=== PATIENT | male | born 1975 | race Caucasian/White ===

== ENCOUNTER 2017-03-14 10:53 | Inpatient (IN) | payer OTHER ==
[2017-03-14] VITALS (22 sets, daily range): BP systolic 113–170; BP diastolic 59–103; PULSE 68–102; RESP 10–31; Ht 175.3 cm; Wt 97.0 kg
[~2017-03-14] VITALS: Ht 175.3 cm; Wt 97.0 kg
[2017-03-14] MEDS ORDERED: BUPIVACAINE 0.25% (MPF) 30 ML INJ ONE (11:56)
[2017-03-14] MEDS ORDERED: SURGIFOAM POWDER 1 GM KIT ONE (11:56)
[2017-03-14] MEDS ORDERED: GELATIN SIZE 100 SPONGE ONE (11:56)
[2017-03-14] MEDS ORDERED: THROMBIN 5000 UNIT VIAL ONE (11:57)
[2017-03-14] MEDS ORDERED: BUPIVACAINE 0.25%/EPI (SDV) 30 ML INJ ONE (11:57)
[2017-03-14] MEDS ORDERED: METF850T PO (12:03)
[2017-03-14] MEDS ORDERED: LISI10TA2 PO (12:04)
[2017-03-14] MEDS ORDERED: GLYB5TAB3 PO (12:04)
[2017-03-14] MEDS ORDERED: SIMV20TA PO (12:04)
[2017-03-14] MEDS ORDERED: NPH,100V SQ (12:05)
[2017-03-14] MEDS ORDERED: HYD25 PO (12:06)
[2017-03-14] MEDS ORDERED: POLYMYXIN/BACITRACIN 1L IRRIG ONE (12:08)
[2017-03-14] MEDS: 1/2 NS + KCL 20 MEQ 1,000 ML IV SCH ×2 (12:21→22:21)
--- NOTE | 2017-03-14 12:21 | HPN ---
Date/Time of Note Date/Time of Note DATE: 03/14/17 TIME: 12:20 Interval H&P Admission Note Pt. seen H&P reviewed: No system changes WHITLEY MANRIQUE PA-C Mar 14, 2017 12:20
[2017-03-14] MEDS ORDERED: FENTAnyl 50 MCG/ML VIAL ONE ×2 (12:22→13:18)
[2017-03-14] MEDS ORDERED: ROCURONIUM 50 MG INJ ONE (12:22)
[2017-03-14] MEDS ORDERED: SUCCINYLCHOLINE CHLORIDE 100 MG/5 ML SYG IV ONE (12:22)
[2017-03-14] MEDS ORDERED: PROPOFOL 20 ML ONE (12:22)
[2017-03-14] MEDS ORDERED: MIDAZOLAM 1 MG/ML 2 ML INJ ONE (12:22)
[2017-03-14] MEDS ORDERED: METOCLOPRAMIDE 10 MG INJ ONE (12:23)
[2017-03-14] MEDS ORDERED: CEPASTAT LOZENGE MT PRN (12:30)
[2017-03-14] MEDS ORDERED: AL HYDROX/MG HYDROX/SIMETH 30 ML CUP PO PRN (12:30)
[2017-03-14] MEDS ORDERED: NALOXONE (0.4 MG/ML) INJ IV PRN (12:30)
[2017-03-14] MEDS ORDERED: LACTATED RINGER'S 1L BAG IV* SCH (12:30)
[2017-03-14] MEDS ORDERED: BISACODYL 10 MG SUPP PR PRN (12:30)
[2017-03-14] MEDS ORDERED: HYDROmorphONE 1 MG/ML SYG IV PRN (12:30)
[2017-03-14] MEDS ORDERED: DIPHENHYDRAMINE 50 MG INJ IV PRN ×2 (12:30→13:30)
[2017-03-14] MEDS ORDERED: ACETAMINOPHEN 325 MG TAB PO PRN (12:30)
[2017-03-14] MEDS ORDERED: CEFAZOLIN 2 GM/50 ML (PMX) 50 ML IVPB SCH (12:30)
[2017-03-14] MEDS: CEFAZOLIN 1 GM/50 ML (PMX) 50 ML IVPB SCH ×2 (12:30→20:20)
[2017-03-14] MEDS ORDERED: ACETAMINOPHEN/CODEINE #3 TAB PO PRN (12:30)
[2017-03-14] MEDS ORDERED: ONDANSETRON 4 MG INJ IV PRN ×2 (12:30→13:30)
[2017-03-14] MEDS ORDERED: HYDROmorphONE 0.2 MG/ML PCA IV SCH (12:30)
[2017-03-14] MEDS ORDERED: ZOLPIDEM 5 MG TAB PO PRN (12:30)
[2017-03-14] MEDS ORDERED: HYDROmorphONE 2 MG/ML SYG ONE (12:35)
[2017-03-14] MEDS ORDERED: CA CHLORIDE 10% 10 ML SYRINGE ONE (13:03)
[2017-03-14] MEDS ORDERED: HYDROmorphONE (0.2 MG/ML) 10ML SYG IV PRN ×3 (13:30)
[2017-03-14] MEDS ORDERED: LABETALOL HCL 20MG INJ IV PRN (13:30)
[2017-03-14] MEDS ORDERED: hydrALAzine 20 MG INJ IV PRN (13:30)
[2017-03-14] MEDS ORDERED: METOCLOPRAMIDE 10 MG INJ IV PRN (13:30)
[2017-03-14] MEDS ORDERED: MEPERIDINE 25 MG INJ IV PRN (13:30)
[2017-03-14] MEDS ORDERED: FENTANYL 100MCG INJ IV ONE (13:33)
--- NOTE | 2017-03-14 13:35 | RADRPT ---
PROCEDURE: A lateral view of the lumbar spine. CLINICAL INDICATION: Surgical finding for lumbar microdiskectomy. TECHNIQUE: A single cross-table lateral view of the lumbar spine was performed. COMPARISON: No. FINDINGS: There is a metal marker dorsal to the L4-5 interspinous space. Another marker is identified in the soft tissues dorsal to the S2. There is mild disk space narrowing at L5-S1. There is a small ventra l osteophyte off of L4. IMPRESSION: 1. 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 2. Mild disk space narrowing at L5-S1 with a metal needle marking the soft tissues dorsal to the L4 -5 interspinous space. RPTAT:AAJJ Physician Marlon Date Time Electronically viewed and signed by Horacio Siddiqi Physician on 03/14/2017 13:35 ANN/
[2017-03-14] MEDS ORDERED: NEOSTIGMINE 3 MG/3 ML SYRINGE ONE (14:21)
[2017-03-14] MEDS ORDERED: GLYCOPYRROLATE 1 MG INJ ONE (14:21)
[2017-03-14] MEDS ORDERED: CEFAZOLIN 1 GM INJ ONE (14:21)
[2017-03-14] MEDS ORDERED: LIDOCAINE 2% (SDV) 5 ML INJ ONE (14:23)
--- NOTE | 2017-03-14 15:14 | OPR ---
DATE OF OPERATION: 03/14/2017 PREOPERATIVE DIAGNOSIS: 1. Right L5-S1 disk herniation. 2. Right lumbosacral radiculopathy. POSTOPERATIVE DIAGNOSIS: 1. Right L5-S1 disk herniation. 2. Right lumbosacral radiculopathy. OPERATION PERFORMED: 1. Right L5-S1 hemilaminotomy, partial medial facetectomy and foraminotomy. 2. Right L5-S1 lumbar microdiskectomy. 3. Use of intraoperative neuromonitoring (2 hours). 5. Lateral localizing film x2. 6. Use of operative microscope. 7. Epidural injection via catheter. PRIMARY SURGEON: Dwight Suero MD ENVIRONMENTAL TEST TECHNICIAN: HUNTER Boss. NEED FOR INGREDIENT SCALER HELPER: During this spinal surgical procedure, my anesthesiologists' assistant was used to retrac t and protect the spinal nerves and dural sac. My anesthesiologists' assistant also employed the suction catheters to evacuate blood from the surgical field to improve visualization of the neural structures. The radha tant was medically necessary to facilitate the completion of the surgery in a safe and expeditious m roberta. State of [place] regulations, as well as hospital bylaws, preclude the use of non-license d health care personnel, such as operating room technicians, to perform these functions. FINDINGS: At the start of the case, the left L5 amplitude down 10%, right L5 amplitude down 20%, le ft S1 down 30%, right S1 amplitude down 70%. At the end of the case, nerve signals returned to norm al. The patient had epidural lipomatosis at L5-S1 with right-sided disk herniation causing nerve ro ot impingement. ESTIMATED BLOOD LOSS: 30 mL. DRAINS: None. SPECIMENS: Disk. COMPLICATIONS OF PROCEDURES: None. ANESTHESIOLOGIST: HUNTER PHILLIPS MD. TYPE OF ANESTHESIA: General. INDICATIONS FOR PROCEDURE: This is a 41-year-old gentleman with right lumbosacral radiculopathy in the setting of disk herniation at L5-S1. He had failed nonoperative measures, therefore, I recommen ded proceeding with the above-mentioned surgery. Preoperatively, risks, benefits and alternatives w ere discussed. He wished to proceed with the surgery. Although the patient had an elevated hemoglo bin A1c, his recent blood sugar levels were below 200 and therefore it was felt safe to proceed with the surgery. DESCRIPTION OF PROCEDURE IN DETAIL: The patient was identified in the preoperative holding area, gi quintin Ancef antibiotic, taken to the operating room, where he was successfully placed under general an esthesia. Neuromonitoring leads were placed, sequential compressive devices were applied. Neuromon itoring was utilized during the procedure for 2 hours to include SSEP, MEP, and EMG. This was perfo rmed by [employer]. Start time was 12:30 p.m., closure time was 2:30 p.m. The patient was pl aced downward and turned in prone position over Elia frame. All bony prominences were well padded . The back was then prepped and draped in usual sterile fashion. Spinal needles were placed and la teral localizing films obtained to confirm the correct levels. Once this was confirmed, I injected the paraspinal musculature with 0.25% Marcaine and epinephrine. Incision was then made over the L5- S1 level. Incision was taken down to dorsal fascia, which was incised with Bovie cautery. I then s ubperiosteally dissected the L5 lamina. Jennifer retractor was placed. Kerrison was placed under wha t was felt to be the L5 lamina and repeat lateral films obtained to confirm the correct levels. Onc e this was confirmed, microscope was brought in and a right-sided hemilaminotomy, partial medial fac etectomy and foraminotomy were performed. Ligamentum flavum was sharply dissected. Epidural lipoma tosis was identified and taking care to remove this to clearly identify the nerve root. I then retr acted neural elements medially. Annulotomy was made followed by diskectomy. Once this was done, al l nerve signals returned to normal. A Valsalva maneuver was performed and there was no leak of CSF. The wound was then copiously irrigated. The wound was dry and therefore did not to place a drain. I passed an epidural catheter through which I injected 100 mcg of fentanyl. Catheter was pulled. I removed the retractor and then closed the deep fascia with #1 Vicryl stitch. I then closed subc utaneous tissue with 2-0 Vicryl stitch. A 4-0 Monocryl closure was then performed. Dermabond was t hen applied. The patient was then awakened from anesthesia and taken to recovery in stable conditio n. Lap, sponge, and instrument counts were correct x2. There were no apparent complications during the procedure. The patient will be admitted to orthopedic abbasi to include pain control, neurovascular checks, antib iotics, and physical therapy as well as diabetes control. Dictated By: DWIGHT PEREZ/FOUZIA Conf#: [id number] DID#: [id number]
--- NOTE | 2017-03-14 16:21 | RADRPT ---
PROCEDURE: XR Lumbar Spine. CLINICAL INDICATION: LUMBAR MICRODISCECTOMY TECHNIQUE: A single lateral view of the lumbar spine was obtained. COMPARISON: No prior studies are available for comparison. FINDINGS: There is normal osseous mineralization. There is normal alignment. A posterior localizing pain is noted at the L5-S1 level. IMPRESSION: Posterior localizing pin at L5-S1. RPTAT: EE Physician Willow Date Time Electronically viewed and signed by Andrea Holland Physician on 03/14/2017 16:21 /
[2017-03-14 17:05] LABS: ADD SCAN DIFF NO
[2017-03-14 17:07] LABS: BASOPHIL # 0.1 10^3/ul (0.0-0.1); BASOPHILS % 0.4 % (0.0-2.0); EOSINOPHILS % 0.1 % (0.0-7.0); HEMATOCRIT 43.8 % (42.0-52.0); HEMOGLOBIN 15.2 g/dl (14.0-18.0); LYMPHOCYTES # 1.5 10^3/ul (0.8-2.9); LYMPHOCYTES % 9.9 % (15.0-51.0); MEAN CORPUSCULAR HEMOGLOBIN 30.3 pg (29.0-33.0); MEAN CORPUSCULAR HGB CONC 34.7 g/dl (32.0-37.0); MEAN CORPUSCULAR VOLUME 87.4 fl (82.0-101.0); MONOCYTE # 1.2 10^3/ul (0.3-0.9); MONOCYTES % 7.4 % (0.0-11.0); NEUTROPHIL # 12.7 10^3/ul (1.6-7.5); NEUTROPHILS % 81.7 % (39.0-77.0); PLATELET COUNT 243 10^3/UL (140-415); RED BLOOD COUNT 5.01 10^6/ul (4.70-6.10); RED CELL DISTRIBUTION WIDTH 12.5 % (11.5-14.5); WHITE BLOOD COUNT 15.6 10^3/ul (4.8-10.8)
[2017-03-14 17:24] LABS: ALBUMIN 4.3 g/dl (3.3-4.9); ALBUMIN/GLOBULIN RATIO 1.79; BILIRUBIN,INDIRECT 0.7 mg/dl (0-1.1); BILIRUBIN,TOTAL 0.7 mg/dl (0.2-1.3); CALCIUM 8.7 mg/dl (8.4-10.2); CREATININE 0.76 mg/dl (0.61-1.24); POTASSIUM 4.8 mmol/L (3.5-5.1); TOTAL PROTEIN 6.7 g/dl (6.1-8.1)
[2017-03-14] MEDS ORDERED: GLUCOSE GEL 15 GRAM TUBE BUCCAL PRN (17:30)
[2017-03-14] MEDS ORDERED: GLUCAGON 1 MG INJ IM PRN (17:30)
[2017-03-14] MEDS ORDERED: GLUCOSE GEL 15 GRAM TUBE PO PRN ×2 (17:30)
[2017-03-14] MEDS ORDERED: DEXTROSE 50% 50 ML SYRINGE IV PRN ×2 (17:30)
--- NOTE | 2017-03-14 18:05 | CONS ---
DATE OF ADMISSION: 03/14/2017 DATE OF CONSULTATION: 03/14/2017 MEDICAL CONSULTATION Thank you, Dr. Suero for asking me to participate in the medical management of this patient. REASON FOR CONSULTATION: Patient has hypertension, diabetes mellitus and hyperlipidemia. HISTORY OF PRESENT ILLNESS: This 41-year-old man says that he was in his usual state of health untlibby travis 07/15/2015 when at work he was lifting some plywood and felt a sudden twinge in his back with estela re pain. The patient has been having treatment through his workman's compensation. He has had epid ural injections which have failed and has had medical management which has also failed. The patient was cleared to have lumbar spine surgery and underwent surgery today by Dr. Suero. The patien t underwent a lumbar spine surgery for a right L5-S1 disk herniation and radiculopathy. The surgery was a right L5-S1 hemilaminectomy, partial medial facetectomy and foraminotomy with a right L5-S1 lumbar microdiscectomy. The patient tolerated the procedure well. He is now in the recovery room a wake and alert. He is answering questions about his history. The patient denies any chest pain or s hortness of breath. The patient has the following past medical history of diabetes mellitus, hypert ension, hyperlipidemia. CURRENT MEDICATIONS: Include the followin. Lisinopril 10 mg daily. 2. Simvastatin 20 mg a day. 3. Hydrochlorothiazide 25 mg a day. 4. Glyburide 10 mg twice a day. 5. NPH insulin 15 units twice a day. 6. Metformin 850 mg twice a day with breakfast and dinner. MEDICATIONS: He did not take any of his medications today. PAST SURGICAL HISTORY: He has not had surgery previously. He does not take any herbal supplements. ALLERGIES: DENIES ANY DRUG ALLERGIES. SOCIAL HISTORY: The patient has never smoked and is a nondrinker. PHYSICAL EXAMINATION: GENERAL: At this time reveals a well-developed man in no apparent distress. VITAL SIGNS: Pulse is 97, blood pressure 150/88, O2 saturation 99% on 2 liter nasal cannula. HEENT: Head normocephalic. Eyes: Extraocular muscles intact. NOSE AND MOUTH: Normal. NECK: Supple. No neck vein distention. LUNGS: Clear to auscultation. HEART: Regular rhythm. No murmurs, gallops or rubs. ABDOMEN: Soft, nontender. EXTREMITIES: No peripheral edema. IMPRESSION: This patient is stable after surgery today. His blood pressure is elevated, but accept able. He is asymptomatic with this. I will manage the patient's hypertension, diabetes mellitus, a nd hyperlipidemia. PLAN: 1. Resume routine medications. 2. Check labs in the morning. 3. Postop lumbar spine surgery protocol. 4. I will follow the patient along with you. Dictated By: TIO GARIBAY MD, ND/FOUZIA Conf#: [id number] DID#: [id number]
[2017-03-14] MEDS: INSULIN ASPART [NOVOLOG] 3 ML PEN SC SCH ×2 (18:46→20:25)
[2017-03-14] MEDS: CYCLOBENZAPRINE 10 MG TAB PO PRN (20:20)
[2017-03-14] MEDS: DOCUSATE SODIUM 100 MG CAP PO SCH (20:20)
[2017-03-14] MEDS ORDERED: ATORVASTATIN 10 MG TAB PO SCH (21:00)
[2017-03-15] MEDS ORDERED: ACCU-CHEK XX SCH (02:00)
[2017-03-15] MEDS: CYCLOBENZAPRINE 10 MG TAB PO PRN (03:46)
[2017-03-15] MEDS: CEFAZOLIN 1 GM/50 ML (PMX) 50 ML IVPB SCH (03:46)
[2017-03-15 05:35] LABS: ADD SCAN DIFF NO
[2017-03-15 05:46] LABS: ABNORMAL IP MESSAGE 1; BASOPHILS % 0.3 % (0.0-2.0); EOSINOPHILS % 0.2 % (0.0-7.0); HEMATOCRIT 42.6 % (42.0-52.0); HEMOGLOBIN 14.4 g/dl (14.0-18.0); LYMPHOCYTES # 1.8 10^3/ul (0.8-2.9); LYMPHOCYTES % 14.2 % (15.0-51.0); MEAN CORPUSCULAR HEMOGLOBIN 29.9 pg (29.0-33.0); MEAN CORPUSCULAR HGB CONC 33.8 g/dl (32.0-37.0); MEAN CORPUSCULAR VOLUME 88.4 fl (82.0-101.0); MEAN PLATELET VOLUME 10.8 fl (7.4-10.4); MONOCYTE # 1.5 10^3/ul (0.3-0.9); MONOCYTES % 11.9 % (0.0-11.0); NEUTROPHIL # 9.5 10^3/ul (1.6-7.5); NEUTROPHILS % 72.9 % (39.0-77.0); PLATELET COUNT 232 10^3/UL (140-415); RED BLOOD COUNT 4.82 10^6/ul (4.70-6.10); RED CELL DISTRIBUTION WIDTH 12.7 % (11.5-14.5)
[2017-03-15 06:09] LABS: ALBUMIN/GLOBULIN RATIO 1.6; BILIRUBIN,INDIRECT 0.9 mg/dl (0-1.1); BILIRUBIN,TOTAL 0.9 mg/dl (0.2-1.3); CALCIUM 8.6 mg/dl (8.4-10.2); CREATININE 0.77 mg/dl (0.61-1.24); MAGNESIUM 1.5 mg/dl (1.7-2.5); POTASSIUM 4.1 mmol/L (3.5-5.1); TOTAL PROTEIN 6.5 g/dl (6.1-8.1)
[2017-03-15] MEDS ORDERED: metFORMIN 850 MG TAB PO SCH (08:30)
--- NOTE | 2017-03-15 08:33 | CONS ---
Date/Time of Note Date/Time of Note DATE: 03/15/17 TIME: 08:30 Assessment/Plan Assessment/Plan Chief Complaint/Hosp Course 1. He is 1 day postop a lumbar spine surgery. He is having some incisional site pain. He does not have any right leg pain. He has been up walking some. 2. Low magnesium. Will order magnesium supplement. 3. Will DC IV fluid after magnesium is given. 4. Diabetes mellitus. I will restart metformin twice a day. Problems: Consultation Date/Type/Reason Admit Date/Time Mar 14, 2017 at 10:53 Initial Consult Date 24 HR Interval Summary Free Text/Dictation He is having some low back pain at the incision site. He says that he has been up to the bathroom. Exam/Review of Systems Vital Signs Vitals Vital Signs Date Time Temp Pulse Resp B/P Pulse Ox O2 Delivery O2 Flow Rate FiO2 03/15/17 06:49 17 03/14/17 23:51 99.3 98 122/71 98 03/14/17 18:55 Room Air 03/14/17 16:29 2.0 Intake and Output 03/14/17 03/14/17 03/15/17 15:00 23:00 07:00 Intake Total 1700 ml 550 ml 1650 ml Output Total 30 ml Balance 1670 ml 550 ml 1650 ml Exam Constitutional: alert, oriented, well developed Respiratory: clear to auscultation, normal air movement Cardiovascular: regular rate and rhythm Gastrointestinal: soft Musculoskeletal: nl extremities to inspection Results Result Diagram: 03/15/17 0427 03/15/17 0427 Results 24 hrs Laboratory Tests Test 03/14/17 11:48 03/14/17 16:33 03/14/17 17:00 03/14/17 18:35 Bedside Glucose 119 134 144 White Blood Count 15.6 H Red Blood Count 5.01 Hemoglobin 15.2 Hematocrit 43.8 Mean Corpuscular Volume 87.4 Mean Corpuscular Hemoglobin 30.3 Mean Corpuscular Hemoglobin Concent 34.7 Red Cell Distribution Width 12.5 Platelet Count 243 Mean Platelet Volume 10.0 Neutrophils % 81.7 H Lymphocytes % 9.9 L Monocytes % 7.4 Eosinophils % 0.1 Basophils % 0.4 Nucleated Red Blood Cells % 0.0 Neutrophils # 12.7 H Lymphocytes # 1.5 Monocytes # 1.2 H Eosinophils # 0.0 Basophils # 0.1 Nucleated Red Blood Cells # 0.0 Sodium Level 140 Potassium Level 4.8 Chloride Level 103 Carbon Dioxide Level 30 Anion Gap 12 Blood Urea Nitrogen 13 Creatinine 0.76 Glucose Level 155 Calcium Level 8.7 Total Bilirubin 0.7 Direct Bilirubin 0.00 Indirect Bilirubin 0.7 Aspartate Amino Transf (AST/SGOT) 32 Alanine Aminotransferase (ALT/SGPT) 50 Alkaline Phosphatase 70 Total Protein 6.7 Albumin 4.3 Globulin 2.40 Albumin/Globulin Ratio 1.79 Test 03/14/17 20:21 03/15/17 01:41 03/15/17 04:27 03/15/17 08:15 Bedside Glucose 225 H 140 183 White Blood Count 13.0 H Red Blood Count 4.82 Hemoglobin 14.4 Hematocrit 42.6 Mean Corpuscular Volume 88.4 Mean Corpuscular Hemoglobin 29.9 Mean Corpuscular Hemoglobin Concent 33.8 Red Cell Distribution Width 12.7 Platelet Count 232 Mean Platelet Volume 10.8 H Neutrophils % 72.9 Lymphocytes % 14.2 L Monocytes % 11.9 H Eosinophils % 0.2 Basophils % 0.3 Nucleated Red Blood Cells % 0.0 Neutrophils # 9.5 H Lymphocytes # 1.8 Monocytes # 1.5 H Eosinophils # 0.0 Basophils # 0.0 Nucleated Red Blood Cells # 0.0 Sodium Level 137 Potassium Level 4.1 Chloride Level 102 Carbon Dioxide Level 26 Anion Gap 13 Blood Urea Nitrogen 14 Creatinine 0.77 Glucose Level 165 Calcium Level 8.6 Magnesium Level 1.5 L Total Bilirubin 0.9 Direct Bilirubin 0.00 Indirect Bilirubin 0.9 Aspartate Amino Transf (AST/SGOT) 31 Alanine Aminotransferase (ALT/SGPT) 46 Alkaline Phosphatase 62 Total Protein 6.5 Albumin 4.0 Globulin 2.50 Albumin/Globulin Ratio 1.60 Medications Medications Current Medications Potassium Chloride/Sodium Chloride (1/2 NS + KCl 20 Meq) 1,000 ml @ 100 mls/hr Q10H IV Last administered on 03/14/17t 12:21; Admin Dose 100 MLS/HR; Start at 12:21 Acetaminophen/ Codeine Phosphate (Tylenol No.3) 1 tab Q4H PRN PO PAIN LEVEL 1-5 ; Start 03/14/17 at 12:30 Acetaminophen/ Codeine Phosphate (Tylenol No.3) 2 tab Q4H PRN PO PAIN LEVEL 6- 10; Start 03/14/17 at 12:30 Hydromorphone HCl (Dilaudid) 0.2 mg Q1H PRN IV BREAKTHROUGH PAIN; Start at 12:30 Ondansetron HCl (Zofran Inj) 4 mg Q6H PRN IV NAUSEA AND/OR VOMITING; Start 03/14 at 12:30 Bisacodyl (Dulcolax Supp) 10 mg DAILY PRN [place] CONSTIPATION; Start 03/14/17 at 12: 30 Docusate Sodium (Colace) 100 mg BID PO Last administered on 03/14/17 20:20; Admin Dose 100 MG; Start 03/14/17 at 21:00 Al Hydrox/Mg Hydrox/Simethicone (Mag-Al Plus) 15 ml Q6H PRN PO CONSTIPATION/ DYSPEPSIA; Start 03/14/17 at 12:30 Acetaminophen (Tylenol Tab) 650 mg Q4H PRN PO CAREY OR TEMP GREATER THAN 101.3F; Start 03/14/17 at 12:30 Cyclobenzaprine HCl (Flexeril) 10 mg TID PRN PO MUSCLE SPASMS Last administered on 03/15/17 03:46; Admin Dose 10 MG; Start 03/14/17 at 12:30 Phenol (Cepastat Lozenge) 1 lozenge PRN PRN MT SORE THROAT; Start 03/14/17 at 12 :30 Diphenhydramine HCl (Benadryl) 25 mg Q6H PRN IV ITCHING; Start 03/14/17 at 12:30 Naloxone HCl (Narcan) 0.2 mg Q2M PRN IV RR 8 BREATHS/MIN OR LESS; Start at 12:30 Hydromorphone HCl (Dilaudid FIELD ADJUSTER) FIELD ADJUSTER to be started in PACU Q4PCA IV Last administered on 03/14/17 14:54; Admin Dose 6 MG; Start 03/14/17 at 12:30; Stop at 10:00 Miscellaneous Information 1. Hold FIELD ADJUSTER at 1,000... FIELD ADJUSTER IV ; Start 03/14/17 at 12: 30; Stop 03/15/17 at 10:00 Lisinopril (Zestril) 10 mg DAILY PO ; Start 03/15/17 at 09:00 Atorvastatin Calcium (Lipitor) 10 mg DAILY@21 PO Last administered on 03/14/17 20:20; Admin Dose 10 MG; Start 03/14/17 at 21:00 Clonidine (Catapres) 0.1 mg Q6H PRN PO ELEVATED BLOOD PRESSURE; Start 03/14/17 at 17:00 Diagnostic Test (Pha) (Accu-Chek) 1 ea 02 XX Last administered on 03/15/17 02: 29; Admin Dose 1 EA; Start 03/15/17 at 02:00 Miscellaneous Information 1 ea NOTE XX ; Start 03/14/17 at 17:30 Glucose (Glutose) 15 gm Q15M PRN PO DECREASED GLUCOSE; Start 03/14/17 at 17:30 Glucose (Glutose) 22.5 gm Q15M PRN PO DECREASED GLUCOSE; Start 03/14/17 at 17:30 Dextrose (D50w Syringe) 25 ml Q15M PRN IV DECREASED GLUCOSE; Start 03/14/17 at 17:30 Dextrose (D50w Syringe) 50 ml Q15M PRN IV DECREASED GLUCOSE; Start 03/14/17 at 17:30 Glucagon (Glucagen) 1 mg Q15M PRN IM DECREASED GLUCOSE; Start 03/14/17 at 17:30 Glucose 15 gm 15 gm Q15M PRN BUCCAL DECREASED GLUCOSE; Start 03/14/17 at 17:30 Magnesium Sulfate (Magnesium Sulfate 2 Gm/50 ml) 50 ml @ 25 mls/hr ONCE ONCE IVPB ; Start 03/15/17 at 08:30; Stop 03/15/17 at 10:29; Status TIO HARLEY MD Mar 15, 2017 08:33
[2017-03-15 08:43] VITALS: BP 130/60; RESP 18
[2017-03-15] MEDS ORDERED: LISINOPRIL 10 MG TAB PO SCH (09:00)
[2017-03-15] MEDS: DOCUSATE SODIUM 100 MG CAP PO SCH (09:08)
[2017-03-15] MEDS: INSULIN ASPART [NOVOLOG] 3 ML PEN SC SCH ×2 (09:11→12:57)
[2017-03-15] MEDS ORDERED: MAGNESIUM SULFATE 2 GM/50 ML 50 ML IVPB ONE (09:30)
[2017-03-15] MEDS: ACETAMINOPHEN/CODEINE #3 TAB PO PRN ×2 (10:01→14:26)
--- NOTE | 2017-03-16 13:37 | DS ---
DATE OF ADMISSION: 03/14/2017 DATE OF DISCHARGE: 03/15/2017 ADMITTING DIAGNOSIS: Lumbar disk herniation. DISCHARGE DIAGNOSIS: Lumbar disc herniation. PROCEDURE: The patient taken to the operating room on 03/14/2017 and underwent lumbar microdiskecto my. HOSPITAL COURSE: The patient was admitted to the orthopedic abbasi after undergoing the above procedu re. By postop day 1, he did well and was deemed stable for discharge, with followup arranged with t he undersigned. Dictated By: JOSIE PEREZ/FOUZIA Conf#: [id number] DID#: [id number]
== END 2017-03-15 15:55 | disposition home or self-care (01) | DRG 520 ==
LOC: REC 10:53 → MS1 17:10
PROVIDERS: ADMIT Specialist; ATTEND Specialist
PROC: 0SB40ZZ Excision of Lumbosacral Disc, Open Approach (ICD-10-PCS; principal; 2017-03-14 12:00)
DX: M51.17 Intervertebral disc disorders with radiculopathy, lumbosacral region (principal); E83.42 Hypomagnesemia; I10 Essential (primary) hypertension; E78.5 Hyperlipidemia, unspecified; E11.9 Type 2 diabetes mellitus without complications; Z79.4 Long term (current) use of insulin
CPT/HCPCS: 72020; 80053; 82962; 83735; 85025; 86999; 97116; 97162; 97530; J0360; J0690; J1170; J1200; J1815; J2250; J2405; J2710; J2765; J3010; J3475; J3480; J7999